=== PATIENT | female | born 1980 | race African-American/Black ===

== ENCOUNTER 2022-10-13 11:37 | Emergency (ER) | payer OTHER ==
[2022-10-13 11:45] VITALS: BP 112/72; PULSE 60; RESP 20; TEMP 98; BMI 35.4
[2022-10-13] MEDS ORDERED: NAPROXEN 500 MG TABLET PO ONE (13:24)
[2022-10-13] MEDS ORDERED: NAPROXEN 500 MG TABLET ONE (13:36)
== END 2022-10-13 13:50 | disposition home or self-care (01) ==
LOC: JER 11:37 → JERFT 11:37
DX: S96.911A Strain of unspecified muscle and tendon at ankle and foot level, right foot, initial encounter (principal); X50.0XXA Overexertion from strenuous movement or load, initial encounter
CPT/HCPCS: 73630-TC-RT-FY; 99284-25